=== PATIENT | male | born 1995 | race African-American/Black ===

== ENCOUNTER 2020-01-24 18:58 | Emergency (ER) | payer BC ==
[2020-01-24] MEDS ORDERED: LIDOCAINE 1% INJ-PF (10 MG/ML) 30 ML SDV INJ ONE (19:22)
[2020-01-24] MEDS ORDERED: ACETAMINOPHEN 325 MG TABLET PO ONE (19:22)
--- NOTE | 2020-01-24 19:26 | ER Document Report ---
ED Medical Screen (RME) - General Stated Complaint: MOUTH INJURY Time Seen by Provider: 01/24/20 19:19 Notes: Patient is a 24-year-old male who presents to the emergency department with a laceration to his left upper lip. Patient states that he was playing football and he went to catch the ball and another person's head hit him in the face. Patient is unsure as to when his last tetanus vaccine was. He denies any blood thinner use. Exam: 1.5 cm Laceration noted to left upper lip. Irregular lacerations noted to inner lip. I have greeted and performed a rapid initial assessment of this patient. A comprehensive ED assessment and evaluation of the patient, analysis of test results and completion of medical decision making process will be conducted by an additional ED providers. Physical Exam - Vital signs Vitals: Temp Pulse Resp BP Pulse Ox 97 F L 76 14 154/89 H 97 01/24/20 19:04 01/24/20 19:04 01/24/20 19:04 01/24/20 19:04 01/24/20 19:04 Course - Vital Signs Vital signs: Temp Pulse Resp BP Pulse Ox 97 F L 76 14 154/89 H 97 01/24/20 19:04 01/24/20 19:04 01/24/20 19:04 01/24/20 19:04 01/24/20 19:04
[2020-01-24] MEDS ORDERED: DIPH/PERTUSS(ACELL)/TETANUS VAC/PF 0.5 ML SYR (>=10YO) IM ONE (19:45)
[2020-01-24] MEDS ORDERED: CEPHALEXIN 500 MG CAPSULE PO ONE (21:00)
[2020-01-24 21:12] VITALS: BP 147/83
--- NOTE | 2020-01-25 05:30 | ER Document Report ---
Entered by SARA TURNER SCRIBE 01/24/202030 Acting as scribe for:ANA DURHAM IV, MD ED General - General Chief Complaint: Mouth Injury Stated Complaint: MOUTH INJURY Time Seen by Provider: 01/24/20 19:19 Primary Care Provider: MARCUS KNIGHT MD [HONORARY] - Follow up as needed Mode of Arrival: Ambulatory Information source: Patient Notes: This 24 year old male patient presents to the ED today with complaints of a laceration to the left upper lip that occurred just prior to arrival. Patient states that he was playing football when another person's head hit his face. He describes the pain as 4/5 and throbbing. He also reports that his 2 left front teeth have been displaced. He notes that he had a headache initially, but it has since resolved. - Related Data Allergies/Adverse Reactions: No Known Allergies Allergy (Verified 01/24/20 21:05) Past Medical History - General Information source: Patient - Social History Smoking Status: Never Smoker Cigarette use (# per day): No Chew tobacco use (# tins/day): No Smoking Education Provided: No Family History: Reviewed & Not Pertinent Patient has suicidal ideation: No Patient has homicidal ideation: No Review of Systems - Review of Systems Constitutional: No symptoms reported EENT: See HPI, Mouth pain, Dental problem Cardiovascular: No symptoms reported Respiratory: No symptoms reported Gastrointestinal: No symptoms reported Genitourinary: No symptoms reported Male Genitourinary: No symptoms reported Musculoskeletal: No symptoms reported Skin: See HPI, Other - Laceration Hematologic/Lymphatic: No symptoms reported Neurological/Psychological: See HPI, Headaches -: Yes All other systems reviewed and negative Physical Exam - Vital signs Vitals: Temp Pulse Resp BP Pulse Ox 97 F L 76 14 154/89 H 97 01/24/20 19:04 01/24/20 19:04 01/24/20 19:04 01/24/20 19:04 01/24/20 19:04 - General General appearance: Alert In distress: None - HEENT Head: Normocephalic, Atraumatic Eyes: Normal Pupils: PERRL Mouth/Lips: Laceration - 2 cm laceration to left upper lip and inside left upper mucosa, Other - Left center and lateral incisors are deviated inward. Teeth are not loose. Bleeding at the gums noted. - Respiratory Respiratory status: No respiratory distress Chest status: Nontender Breath sounds: Normal Chest palpation: Normal - Cardiovascular Rhythm: Regular Heart sounds: Normal auscultation Murmur: No Friction rub: No Gallop: None auscultated - Abdominal Inspection: Normal Distension: No distension Bowel sounds: Normal Tenderness: Nontender - Abdomen soft Organomegaly: No organomegaly - Back Back: Normal, Nontender - Extremities General upper extremity: Normal inspection General lower extremity: Normal inspection - Neurological Neuro grossly intact: Yes Orientation: AAOx4 - Psychological Associated symptoms: Normal affect, Normal mood - Skin Skin Temperature: Warm Skin Moisture: Dry Skin Color: Normal Skin irregularity: Laceration - 2 cm stellate laceration inside left upper mucosa of mouth. 2 cm linear lacteration to left upper lip. Course - Re-evaluation Re-evalutation: 01/24/20 20:56 Findings on physical exam, repair of exterior facial laceration, follow-up for suture removal, follow-up with dentist for dental injury discussed with patient. All questions were answered prior to discharge. Patient states he will follow-up with his dentist on 01/26/2020. Patient informed he could return to this ED in 5 days or see a regular healthcare provider in 5 days for removal of his sutures. Also explained patient need for peroxyl rinses and Keflex for the mucosal portion of laceration 01/24/20 20:58 Emergency signs and symptoms, reasons to return to the emergency department discussed with patient. - Vital Signs Vital signs: Temp Pulse Resp BP Pulse Ox 98.6 F 76 14 154/89 H 97 01/24/20 19:22 01/24/20 19:04 01/24/20 19:04 01/24/20 19:04 01/24/20 19:04 Procedures - Laceration/Wound Repair Left Upper Face Time completed: 20:58 - Left upper lip, approximately 2 cm, linear, involves vermilion border Wound length (cm): 2 Wound's Depth, Shape: Linear Laceration pre-procedure: Sterile PPE Hina omalley applied Anesthetic type: 1% Lidocaine Volume Anesthetic (mLs): 2 Wound explored: Clean Irrigated w/ Saline (mLs): 5 Wound Repaired With: Sutures Suture Size/Type: 5:0, Prolene Number of Sutures: 6 - Simple interrupted Layer Closure?: No Post-procedure NV exam normal: Yes Complications: No Discharge - Discharge Clinical Impression: Lip laceration Qualifiers: Encounter type: initial encounter Qualified Code(s): S01.511A - Laceration without foreign body of lip, initial encounter Dental injury Qualifiers: Encounter type: initial encounter Qualified Code(s): S09.93XA - Unspecified injury of face, initial encounter Condition: Good Disposition: HOME, SELF-CARE Instructions: Antibiotic Ointment Protection ([facility]), Laceration Care ([facility]), Prophylactic Antibiotic ([facility]), Tetanus Immunization Given ([facility]) Additional Instructions: Be certain to follow-up with your dentist on 01/26/2020. Return to the Emergency Department without delay if any worse. You can return to the emergency department in 5 days for suture removal. HOME CARE INSTRUCTIONS & INFORMATION: Thank you for choosing us for your medical needs. We hope you're satisfied with the care you received. After you leave, you must properly care for your problem and, at the same time, observe its progress. Any condition can change. Some illnesses can change rapidly over hours or days. If your condition worsens, return to the Emergency Department or see your physician promptly. ABOUT YOUR X-RAYS AND EKG'S: If you had an EKG or X-rays taken, they have been read by the Emergency Physician. The X-rays and EKG's will also be read by a Radiologist or Senior Portfolio Manager within 24 hours. If discrepancies are noted, you will be notified by telephone. Please be certain the ED has a correct telephone number & address where you can be reached. Also, realize that some fractures or abnormalities do not show up on initial X-rays. If your symptoms continue, see your physician. ABOUT YOUR LABORATORY TEST: If you had laboratory tests, the results have been reviewed by the Emergency Physician. Some test results (for example cultures) may not be available for several days. You will be contacted if any test result shows you need additional treatment. Please be certain the ED has a correct telephone number and address where you can be reached. ABOUT YOUR MEDICATIONS: You will receive instructions on how to take your medicine on the prescription label you receive. Additional information may be provided by the Pharmacy. If you have questions afterwards, call the ED for clarification or further instructions. Some prescribed medications may cause drowsiness. Do not perform tasks such as driving a car or operating machinery without consulting your Pharmacist. If you feel you need a refill of pain me dication, your condition will need re-evaluation. Please do not call for a refill of any medication. ABOUT YOUR SIGNATURE: Signature of this document acknowledges to followin. Understanding that you received emergency treatment and that you may be released before al medical problems are known or treated. Please be certain the ED has a correct phone number & address where you can be reached. 2. Acknowledgement that you will arrange for follow-up care as recommended. 3. Authorization for the Emergency Physician to provide information to your follow-up Physician in order to maximize your care. AT ANY TIME, IF YOUR SYMPTOMS CHANGE SIGNIFICANTLY OR WORSEN OR YOU DEVELOP NEW SYMPTOMS, RETURN TO THE EMERGENCY DEPARTMENT IMMEDIATELY FOR RE-EVALUATION. OUR GOAL IS TO PROVIDE EXCELLENT MEDICAL CARE! WE HOPE THAT WE HAVE MET YOUR EXPECTATIONS DURING YOUR EMERGENCY DEPARTMENT VISIT AND THAT YOU FEEL YOU HAVE RECEIVED EXCELLENT CARE! Prescriptions: Cephalexin Monohydrate [Keflex 500 mg Capsule] 500 mg PO Q6H 7 Days #28 capsule Referrals: MARCUS KNIGHT MD [HONORARY] - Follow up as needed I personally performed the services described in the documentation, reviewed and edited the documentation which was dictated to the scribe in my presence, and it accurately records my words and actions.
== END 2020-01-24 21:15 | disposition home or self-care (01) ==
LOC: ER 18:58
DX: S01.511A Laceration without foreign body of lip, initial encounter (principal); S09.93XA Unspecified injury of face, initial encounter; W03.XXXA Other fall on same level due to collision with another person, initial encounter; Y93.61 Activity, american tackle football; Z23 Encounter for immunization
CPT/HCPCS: 90471; 90715; 99282